=== PATIENT | female | born 1940 ===

== ENCOUNTER 2018-08-19 10:17 | Emergency (ER) | payer OTHER ==
[~2018-08-19] VITALS: Ht 157.5 cm; Wt 60.8 kg
[~2018-08-19 10:17] MED LIST: EXFORGE 5-320 M1 TAB PO
[2018-08-19] MEDS ORDERED: AMLODIPINE-OLM1 EAC1 PO (10:51)
== END 2018-08-19 15:06 | disposition home or self-care (01) ==
LOC: ER 10:17
DX: M79.605 Pain in left leg (principal)